=== PATIENT | male | born 1950 | race Caucasian/White ===

== ENCOUNTER → 2023-04-23 | Outpatient (CLI) | payer MEDICARE, BC, SELFPAY ==
--- NOTE | 2023-04-23 10:00 | MRI_ITS ---
EXAM: MR LUMBAR SPINE WITHOUT INTRAVENOUS CONTRAST CLINICAL INDICATION: pain TECHNIQUE: Multiplanar and multisequence MR images of the lumbar spine without intravenous contrast. COMPARISON: No relevant prior studies available. FINDINGS: VERTEBRAE: Mild dextroscoliosis of the lumbar spine centered at the L2-3 level. Disc space narrowing of the lateral aspect of the L2-3 and L3-4 disc related to the scoliosis resulting in moderate vertebral body hypertrophy. SPINAL CORD: Normal. Normal position and signal intensity of the conus medullaris. SOFT TISSUES: Normal. DISCS/SPINAL CANAL/NEURAL FORAMINA: L1-L2: No significant disc space narrowing. Mild disc bulging without significant compression of the thecal sac or neural foramina. L2-L3: Moderate disc space narrowing. Prominent disc osteophyte complex and facet arthropathy results in moderate spinal stenosis, severe left and mild right neural foraminal stenoses. L3-L4: Moderate disc space narrowing. Prominent disc herniation, ligamentous hypertrophy and facet arthropathy results in severe spinal stenosis and severe left neural foraminal stenosis. Mild right neural foraminal stenosis. L4-L5: Mild to moderate disc space narrowing. Large broad-based disc herniation, ligamentous hypertrophy and facet arthropathy results in moderate to severe spinal stenosis and severe bilateral neural foraminal stenosis. L5-S1: Central disc herniation without significant compression of the thecal sac. Facet arthropathy results in severe right and moderate left neural foraminal narrowing. MRI/Spine Lumbar (Routine) IMPRESSION: Advanced multilevel disc degeneration facet arthropathy resulting in significant spinal stenosis at L2-3, L3-4 and L4-5. Additional multilevel severe neural foraminal stenoses. Electronically Signed: Leonel Cruz MD at 12:17 EDT ,
== END | disposition home or self-care (01) ==
LOC: MRI 09:18
PROVIDERS: Referring Provider Orthopaedic Surgery; Visit Provider Orthopaedic Surgery
DX: R27.0 Ataxia, unspecified (principal)
CPT/HCPCS: 72148

== ENCOUNTER 2025-02-21 07:06 | Outpatient (CLI) | payer MEDICARE, BC, SELFPAY ==
--- NOTE | 2025-02-21 07:15 | MRI_ITS ---
PROCEDURE: SPINE LUMBAR (ROUTINE) (MRISPL), 02/21/2025 REASON FOR EXAM: RADICULOPATHY TECHNIQUE: Multisequence multiplanar MR of the lumbar spine was performed without IV contrast. COMPARISON: None FINDINGS: Vertebral body heights are preserved. Degenerative type marrow signal changes greatest at L3-L4 and greater on the LEFT. Mild/moderate lumbar dextroscoliosis with apex at L2-L3. Conus medullaris terminates normally at the L1-L2 disc level. Redundant appearance of the nerve roots of the cauda equina, greatest at the L1-L2 level. Crowding of the nerve roots of the cauda equina related to the below stenoses: L1-2: Incompletely imaged L1 vertebral body on axial sequences. Bulging asymmetric to the RIGHT. Superimposed RIGHT foraminal broad-based disc and lateral disc protrusion. Mild focal spinal canal stenosis. No significant foraminal or spinal canal stenosis. Mild narrowing of the RIGHT lateral recess. Facet arthropathy.. L2-3: Disc height loss with diffuse disc bulging, asymmetric to the LEFT. Facet arthropathy. Severe focal spinal canal stenosis with complete effacement of CSF, spinal canal dimensions 1.4 x 0.6 cm transverse by AP. Moderate LEFT foraminal stenosis. L3-4: Disc height loss with diffuse disc bulging, asymmetric to the LEFT. Facet arthropathy and ligamentum flavum hypertrophy. Severe focal spinal canal stenosis with complete effacement of CSF, spinal canal dimensions 1.2 x 0.5 cm. Severe LEFT and mild RIGHT foraminal stenosis. L4-5: Disc height loss with diffuse disc bulging. Facet arthropathy and ligamentum flavum hypertrophy. Severe spinal canal stenosis with complete effacement of CSF, spinal canal dimensions 0.9 x 0.5 cm. Severe RIGHT and mild/moderate LEFT foraminal stenosis. L5-S1: Mild disc height loss with diffuse disc bulging. Small superimposed posterior central disc protrusion. Facet arthropathy.. [id number] RIGHT and mild LEFT foraminal stenosis. Mild focal spinal canal stenosis. Other: 1.6 cm indeterminate hepatic lesion anteriorly on steward/[facility]ew[facility] bath imaging. Bladder wall thickening versus underdistention. Cervical spondylosis, not well evaluated. Suspected mucous retention cyst, inferior RIGHT maxillary sinus. Diverticulosis. 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 Body MRI/Spine Lumbar (Routine) IMPRESSION: 1. Advanced multilevel spondylosis as above and including severe canal stenoses from L2-L5 with upstream redundancy in the cauda equina. Variable foraminal stenoses up to severe on the LEFT at L3-L4 and on t he RIGHT at L4-L5. 2. Bladder wall thickening versus underdistention. Correlate for chronic bladd er outlet obstruction and/or cystitis. 3. 1.6 cm indeterminate hepatic lesion. Recommend multiphase hepatic protocol CT or MRI with and without contrast. Comparison with any available outside imaging may also be helpful. 4. Additional description as above. Reading Location: [id number]
== END 2025-02-21 23:59 | disposition home or self-care (01) ==
LOC: MRI 07:13
PROVIDERS: PCP Internal Medicine Infectious Disease
DX: M54.16 Radiculopathy, lumbar region (principal)
CPT/HCPCS: 72148